=== PATIENT | female | born 1965 | race Caucasian/White ===

== ENCOUNTER 2021-08-17 12:58 | Day surgery (SDC) | payer OTHER ==
[2021-08-17] MEDS ORDERED: Albumin 25% 0 ML ONE (13:53)
[2021-08-17] MEDS ORDERED: Sodium Bicarbonate 2.5 MEQ/5 ML VIAL ONE (13:53)
[2021-08-17] MEDS ORDERED: Lidocaine 1% PF 5 ML VIAL ONE (13:53)
[2021-08-17 14:49] VITALS: BP 134/79; TEMP 97.8
== END 2021-08-17 14:35 | disposition home or self-care (01) ==
LOC: CSHULT 12:58
PROVIDERS: ATTEND Physician Assistant Medical
DX: K70.31 Alcoholic cirrhosis of liver with ascites (principal); I85.10 Secondary esophageal varices without bleeding; D64.9 Anemia, unspecified
CPT/HCPCS: 49083; P9047

== ENCOUNTER 2022-10-21 13:20 | Day surgery (SDC) | payer OTHER ==
[2022-10-20 09:11] VITALS: BMI 25.7
[2022-10-21] MEDS ORDERED: PROPOFOL 40 ML ONE (13:56)
== END 2022-10-21 15:20 | disposition home or self-care (01) ==
LOC: CSHSDC 13:20
PROVIDERS: ATTEND Internal Medicine Gastroenterology
PROC: 0DJ08ZZ Inspection of Upper Intestinal Tract, Via Natural or Artificial Opening Endoscopic (ICD-10-PCS; principal; 2022-10-21)
DX: K22.70 Barrett's esophagus without dysplasia (principal); K70.31 Alcoholic cirrhosis of liver with ascites; K44.9 Diaphragmatic hernia without obstruction or gangrene; I85.10 Secondary esophageal varices without bleeding; K72.90 Hepatic failure, unspecified without coma; K21.9 Gastro-esophageal reflux disease without esophagitis; F41.9 Anxiety disorder, unspecified; K76.82 Hepatic encephalopathy; I10 Essential (primary) hypertension; F10.20 Alcohol dependence, uncomplicated; G40.909 Epilepsy, unspecified, not intractable, without status epilepticus; Z98.49 Cataract extraction status, unspecified eye; Z98.51 Tubal ligation status; Z91.011 Allergy to milk products; Z79.899 Other long term (current) drug therapy; Y90.9 Presence of alcohol in blood, level not specified
CPT/HCPCS: J2704